=== PATIENT | male | born 1980 | race Caucasian/White ===

== ENCOUNTER 2019-05-02 17:21 | Emergency (ER) | payer OTHER ==
--- NOTE | 2019-05-02 17:49 | ED ---
General Adult HPI - General Chief complaint: Arrhythmia/Palpitations Stated complaint: heart racing Time Seen by Provider: 05/02/19 17:30 Source: patient, family, RN notes reviewed Mode of arrival: ambulatory Limitations: no limitations - History of Present Illness Initial comments: Patient is a pleasant 39-year-old male presenting to the emergency Department with complaints of palpitations. Onset of symptoms was several weeks ago. Symptoms are intermittent. Symptoms last only for a second and then go away for around 20 minutes or so. Patient states today he did have some associated lightheadedness. Patient denies ever having chest discomfort. No dyspnea. Patient has been drinking a lot of coffee and smoking a lot of cigarettes. No energy drinks or diet pills. - Related Data Home Medications Medication Instructions Recorded Confirmed No Known Home Medications 05/07/14 05/02/19 Allergies Allergy/AdvReac Type Severity Reaction Status Date / Time No Known Allergies Allergy Verified 05/02/19 18:29 Review of Systems ROS Statement: Those systems with pertinent positive or pertinent negative responses have been documented in the HPI. ROS Other: All systems not noted in ROS Statement are negative. Constitutional: Denies: fever Eyes: Denies: eye pain ENT: Denies: ear pain Respiratory: Denies: cough, dyspnea Cardiovascular: Reports: palpitations. Denies: chest pain Endocrine: Denies: fatigue Gastrointestinal: Denies: abdominal pain Genitourinary: Denies: dysuria Musculoskeletal: Denies: back pain Skin: Denies: rash Neurological: Denies: weakness Past Medical History Past Medical History: No Reported History Additional Past Medical History / Comment(s): collapsed lung History of Any Multi-Drug Resistant Organisms: None Reported Past Surgical History: No Surgical Hx Reported Past Psychological History: No Psychological Hx Reported Smoking Status: Current every day smoker Past Alcohol Use History: Occasional Past Drug Use History: None Reported General Exam Limitations: no limitations General appearance: alert, in no apparent distress Head exam: Present: normocephalic Eye exam: Present: normal appearance Respiratory exam: Present: normal lung sounds bilaterally Cardiovascular Exam: Present: regular rate, normal rhythm, normal heart sounds. Absent: systolic murmur Expanded Peripheral pulses: 2+: Radial (R), Radial (L), Dorsalis Pedis (R), Dorsalis Pedis (L) GI/Abdominal exam: Present: soft. Absent: tenderness Extremities exam: Present: normal inspection Neurological exam: Present: alert Psychiatric exam: Present: normal affect, normal mood Skin exam: Present: normal color Course Vital Signs 05/02/19 05/02/19 17:24 18:22 Temperature 97.8 F Pulse Rate 60 57 L Respiratory 18 14 Rate Blood Pressure 127/87 116/85 O2 Sat by Pulse 100 98 Oximetry EKG Findings - EKG Comments: EKG Findings:: Sinus bradycardia 57. VA 148. QRS 88. QT 414. QTC 402. Normal axis. Normal QRS. Prominent T waves. Medical Decision Making - Medical Decision Making Patient reevaluated and resting comfortably in bed, symptom-free at this time. Patient and family updated on results and need for follow-up. Patient is agreeable to discontinuing heavy caffeine use and smoking. - Lab Data Result diagrams: 05/02/19 17:50 05/02/19 17:50 Lab Results 05/02/19 05/02/19 05/02/19 Range/Units 17:50 17:50 17:50 WBC 6.5 (3.8-10.6) k/uL RBC 4.74 (4.30-5.90) m/uL Hgb 14.8 (13.0-17.5) gm/dL Hct 44.8 (39.0-53.0) % MCV 94.5 (80.0-100.0) fL MCH 31.3 (25.0-35.0) pg MCHC 33.1 (31.0-37.0) g/dL RDW 13.2 (11.5-15.5) % Plt Count 237 (150-450) k/uL Neutrophils % 57 % Lymphocytes % 28 % Monocytes % 7 % Eosinophils % 3 % Basophils % 3 % Neutrophils # 3.7 (1.3-7.7) k/uL Lymphocytes # 1.8 (1.0-4.8) k/uL Monocytes # 0.4 (0-1.0) k/uL Eosinophils # 0.2 (0-0.7) k/uL Basophils # 0.2 (0-0.2) k/uL PT 9.8 (9.0-12.0) sec INR 0.9 (<1.2) APTT 25.9 (22.0-30.0) sec Sodium 140 (137-145) mmol/L Potassium 4.5 (3.5-5.1) mmol/L Chloride 102 (98-107) mmol/L Carbon Dioxide 29 (22-30) mmol/L Anion Gap 9 mmol/L BUN 12 (9-20) mg/dL Creatinine 0.83 (0.66-1.25) mg/dL Est GFR (CKD-EPI)AfAm >90 (>60 ml/min/1.73 sqM) Est GFR (CKD-EPI)NonAf >90 (>60 ml/min/1.73 sqM) Glucose 102 H (74-99) mg/dL Calcium 9.5 (8.4-10.2) mg/dL Magnesium 1.9 (1.6-2.3) mg/dL Total Bilirubin 0.4 (0.2-1.3) mg/dL AST 25 (17-59) U/L ALT 20 L (21-72) U/L Alkaline Phosphatase 63 (38-126) U/L Creatine Kinase 157 (55-170) U/L Troponin I (0.000-0.034) ng/mL Total Protein 7.8 (6.3-8.2) g/dL Albumin 4.8 (3.5-5.0) g/dL TSH 2.730 (0.465-4.680) mIU/L Free T4 1.29 (0.78-2.19) ng/dL Free T3 pg/mL 5.2 (2.8-5.3) pg/ml 05/02/19 Range/Units 17:50 WBC (3.8-10.6) k/uL RBC (4.30-5.90) m/uL Hgb (13.0-17.5) gm/dL Hct (39.0-53.0) % MCV (80.0-100.0) fL MCH (25.0-35.0) pg MCHC (31.0-37.0) g/dL RDW (11.5-15.5) % Plt Count (150-450) k/uL Neutrophils % % Lymphocytes % % Monocytes % % Eosinophils % % Basophils % % Neutrophils # (1.3-7.7) k/uL Lymphocytes # (1.0-4.8) k/uL Monocytes # (0-1.0) k/uL Eosinophils # (0-0.7) k/uL Basophils # (0-0.2) k/uL PT (9.0-12.0) sec INR (<1.2) APTT (22.0-30.0) sec Sodium (137-145) mmol/L Potassium (3.5-5.1) mmol/L Chloride (98-107) mmol/L Carbon Dioxide (22-30) mmol/L Anion Gap mmol/L BUN (9-20) mg/dL Creatinine (0.66-1.25) mg/dL Est GFR (CKD-EPI)AfAm (>60 ml/min/1.73 sqM) Est GFR (CKD-EPI)NonAf (>60 ml/min/1.73 sqM) Glucose (74-99) mg/dL Calcium (8.4-10.2) mg/dL Magnesium (1.6-2.3) mg/dL Total Bilirubin (0.2-1.3) mg/dL AST (17-59) U/L ALT (21-72) U/L Alkaline Phosphatase (38-126) U/L Creatine Kinase (55-170) U/L Troponin I <0.012 (0.000-0.034) ng/mL Total Protein (6.3-8.2) g/dL Albumin (3.5-5.0) g/dL TSH (0.465-4.680) mIU/L Free T4 (0.78-2.19) ng/dL Free T3 pg/mL (2.8-5.3) pg/ml - Radiology Data Radiology results: image reviewed (Chest x-ray shows no acute process) Disposition Clinical Impression: Palpitations Disposition: HOME SELF-CARE Condition: Stable Instructions (If sedation given, give patient instructions): Heart Palpitations (ED) Additional Instructions: Please follow-up with primary care physician in the next couple days for recheck. Consider Holter monitor and cardiac echo. Discontinue caffeine and smoking. Return for increased heart rate, pain, difficulty breathing, worsening or changing symptoms or other concerns. Is patient prescribed a controlled substance at d/c from ED?: No Referrals: Max Webber MD [STAFF PHYSICIAN] - 1-2 days Time of Disposition: 18:47
[2019-05-02 17:57] LABS: Basophils # (A) 0.2 k/uL (0-0.2); Basophils % (A) 3 %; Eosinophils # (A) 0.2 k/uL (0-0.7); Eosinophils % (A) 3 %; HCT 44.8 % (39.0-53.0); HGB 14.8 gm/dL (13.0-17.5); Lymphocytes # (A) 1.8 k/uL (1.0-4.8); Lymphocytes % (A) 28 %; MCH 31.3 pg (25.0-35.0); MCHC 33.1 g/dL (31.0-37.0); MCV 94.5 fL (80.0-100.0); Mean Platelet Volume 7.2; Monocytes # (A) 0.4 k/uL (0-1.0); Monocytes % (A) 7 %; Neutrophils # (A) 3.7 k/uL (1.3-7.7); Neutrophils % (A) 57 %; Platelet Count 237 k/uL (150-450); RBC 4.74 m/uL (4.30-5.90); RDW 13.2 % (11.5-15.5); WBC 6.5 k/uL (3.8-10.6)
--- NOTE | 2019-05-02 18:03 | XR ---
EXAMINATION TYPE: XR chest 2V DATE OF EXAM: 05/02/2019 COMPARISON: 07/11/2013 HISTORY: Syncope TECHNIQUE: Frontal and lateral views of the chest are obtained. FINDINGS: Heart and mediastinum are normal. Lungs are clear. Diaphragm is normal. Bony thorax appear s normal. IMPRESSION: Normal chest. Normal heart. There is clearing of left side pneumothorax compared to old exam.
[2019-05-02 18:06] LABS: INR 0.9 (<1.2); Partial Thromboplastin Time 25.9 sec (22.0-30.0); Prothrombin Time 9.8 sec (9.0-12.0)
[2019-05-02 18:09] LABS: ALT 20 U/L (21-72); AST 25 U/L (17-59); African American GFR (CKD) >90 (>60 ml/min/1.73 sqM); Albumin 4.8 g/dL (3.5-5.0); Alkaline Phosphatase 63 U/L (38-126); Anion Gap 9 mmol/L; Blood Urea Nitrogen 12 mg/dL (9-20); Calcium 9.5 mg/dL (8.4-10.2); Carbon Dioxide 29 mmol/L (22-30); Chloride 102 mmol/L (98-107); Creatine Kinase 157 U/L (55-170); Glucose 102 mg/dL (74-99); Magnesium 1.9 mg/dL (1.6-2.3); Potassium 4.5 mmol/L (3.5-5.1); Sodium 140 mmol/L (137-145); Total Bilirubin 0.4 mg/dL (0.2-1.3); Total Protein 7.8 g/dL (6.3-8.2)
[2019-05-02 18:28] LABS: T4, Free (Free Thyroxine) 1.29 ng/dL (0.78-2.19)
[2019-05-02 18:53] VITALS: BP 112/76; PULSE 58; RESP 20; TEMP 98
== END 2019-05-02 19:17 | disposition home or self-care (01) ==
LOC: EC 17:21
DX: R00.2 Palpitations (principal); F17.210 Nicotine dependence, cigarettes, uncomplicated
CPT/HCPCS: 36415; 71046; 80053; 82550; 83735; 84439; 84443; 84481; 84484; 85025; 85610; 85730; 93005; 99285

== ENCOUNTER 2021-09-22 08:07 | Inpatient (IN) | payer OTHER ==
[2021-09-22 09:27] LABS: African American GFR (CKD) >90 (>60 ml/min/1.73 sqM); Anion Gap 12 mmol/L; Basophils # (A) 0.1 k/uL (0-0.2); Basophils % (A) 1 %; Blood Urea Nitrogen 10 mg/dL (9-20); Calcium 9.5 mg/dL (8.4-10.2); Carbon Dioxide 25 mmol/L (22-30); Chloride 105 mmol/L (98-107); Eosinophils # (A) 0.1 k/uL (0-0.7); Eosinophils % (A) 1 %; Glucose 91 mg/dL (74-99); HCT 48.5 % (39.0-53.0); HGB 16.9 gm/dL (13.0-17.5); Lymphocytes # (A) 1.9 k/uL (1.0-4.8); Lymphocytes % (A) 17 %; MCH 32.9 pg (25.0-35.0); MCHC 34.9 g/dL (31.0-37.0); MCV 94.1 fL (80.0-100.0); Mean Platelet Volume 7.7; Monocytes # (A) 0.4 k/uL (0-1.0); Monocytes % (A) 3 %; Neutrophils # (A) 8.8 k/uL (1.3-7.7); Neutrophils % (A) 78 %; Non-African American GFR(CKD) >90 (>60 ml/min/1.73 sqM); Platelet Count 288 k/uL (150-450); Potassium 4.8 mmol/L (3.5-5.1); RBC 5.16 m/uL (4.30-5.90); RDW 13.8 % (11.5-15.5); Sodium 142 mmol/L (137-145); WBC 11.4 k/uL (3.8-10.6)
[2021-09-22 10:00] LABS: Amphetamine Screen,Urine Not Detected (NotDetected); Barbiturate Screen,Urine Not Detected (NotDetected); Benzodiazepines Screen,Urine Not Detected (NotDetected); Cocaine Screen,Urine Not Detected (NotDetected); Methadone Screen, Urine Not Detected (NotDetected); Opiate Screen,Urine Not Detected (NotDetected); Oxycodone Screen, Urine Not Detected (NotDetected); Phencyclidine Screen,Urine Not Detected (NotDetected); Tricyclic Antidepressant,Urine Not Detected (NotDetected); Urn Cannabinoid Scrn Not Detected (NotDetected)
--- NOTE | 2021-09-22 10:04 | CT ---
EXAMINATION TYPE: CT angio head neck DATE OF EXAM: 09/22/2021 COMPARISON: None HISTORY: 41-year-old male pain, suicide attempt, laceration to left anterior neck and right post TECHNIQUE: Contiguous axial scanning of the head and neck performed with IV Contrast, patient injecte d with 65 mL of Isovue 370. Coronal/sagittal MIP reconstructions performed. 3-D reconstructions gener ated on a dedicated indeterminate workstation. CT DLP: 478.4 mGycm Automated exposure control for dose reduction was used. FINDINGS: NECK: Conventional branching anatomy. The bilateral common and internal carotid arteries are widely patent and appear intact. Left vertebra l artery is dominant. Both vertebral arteries are patent and intact throughout their course. There is soft tissue injury along the left supraclavicular region with associated soft tissue swellin g and soft tissue air extending up into the left mid neck behind the carotid space, within the subcut aneous fat layer, and within the posterior half of the left sternocleidomastoid muscle. Additional so ft tissue injury to the right posterior upper neck. Foci of air within the right posterior paraspinal musculature and subcutaneous tissues. No extravasated contrast or abnormal fluid collection is identified. Some limitation due to dense con trast bolus coming in from the left upper extremity. Bilateral palatine tonsillar hypertrophy with a 3 mm tonsillolith on the right. BRAIN: Dominant left vertebral artery. Vertebral and basilar arteries as well as the remainder of the preschool associate teacher ior circulation are patent. The internal carotid arteries and remainder of the anterior circulation is patent. Dural venous sinuses are patent. No aneurysmal changes seen Mastoid air cells well pneumatized. Undulating nasal septum. Mild degenerative disc disease and endpl ate spondylosis mid to lower cervical spine. IMPRESSION (head and neck): 1. SOFT TISSUE INJURY LEFT LOWER NECK/SUPRACLAVICULAR REGION AND RIGHT POSTERIOR UPPER NECK. THIS IS CHARACTERIZED BY SOFT TISSUE SWELLING AND SOFT TISSUE AIR IN KEEPING WITH LACERATIONS. 2. NO ARTERIAL/VASCULAR INJURY IDENTIFIED. PATENT AND INTACT CAROTID AND VERTEBRAL ARTERIES OF THE NE CK. 3. NORMAL APPEARANCE TO THE [place].
[2021-09-22] MEDS ORDERED: DIPH,PERTUS(ACELL)TETVAC-LF 0.5 ML VIAL IM ONE (10:23)
--- NOTE | 2021-09-22 11:19 | ED ---
General Adult HPI - General Chief complaint: Psychiatric Symptoms Stated complaint: suicidal Time Seen by Provider: 09/22/21 08:20 Source: patient, family, RN notes reviewed, old records reviewed Mode of arrival: ambulatory Limitations: no limitations - History of Present Illness Initial comments: Patient is a 41-year-old male with past medical history remarkable for psychiatric illness with prior suicide attempts presents emergency Department following a suicide attempt at home. He has been having suicidal ideations. Last night he did take a steak knife and made cuts that his neck both on the left side anteriorly as well as posterior right side. He has some mild superficial puncture paul. No significant bleeding. No significant pain at th e site. Presents over concern for the suicide attempt as well as the injury to his neck. Denies any headaches, shortness of breath, chest pain, abdominal pain, nausea, vomiting. Is uncertain when his last shot was. Denies any fevers, chills. Presents with family. Denies any homicidal ideations, attempts complaints. Denies any visual or auditory hallucinations. - Related Data Home Medications Medication Instructions Recorded Confirmed No Known Home Medications 05/07/14 09/22/21 Allergies Allergy/AdvReac Type Severity Reaction Status Date / Time No Known Allergies Allergy Verified 09/22/21 08:40 Review of Systems ROS Statement: Those systems with pertinent positive or pertinent negative responses have been documented in the HPI. Review of Systems: CONST: Denies fever EYES: Denies blurry vision ENT: Denies nasal congestion C/V: Denies Chest pain RESP: Denies shortness of breath GI: Denies abdominal pain : Denies dysuria SKIN: Endorses superficial lacerations to the neck. MSK: Denies joint pain. NEURO: Denies headache PSYCH: Denies homicidal ideations/plans/attempts. Denies visual or auditory hallucinations. He endorses suicidal ideations, plan, as well as attempt last night with a knife. ROS Other: All systems not noted in ROS Statement are negative. Past Medical History Past Medical History: No Reported History Additional Past Medical History / Comment(s): collapsed lung History of Any Multi-Drug Resistant Organisms: None Reported Past Surgical History: No Surgical Hx Reported Past Psychological History: No Psychological Hx Reported Smoking Status: Current every day smoker Past Alcohol Use History: Abuse, Daily Past Drug Use History: None Reported General Exam - General Exam Comments Initial Comments: General: Appears in no acute distress. HEAD: Normal with no signs of head trauma. EYES: PERRLA, EOMI, conjunctiva normal, no discharge. ENT: Hearing grossly intact, normal oropharynx. No stridor auscultated. No carotid bruits bilaterally. Superficial lacerations without any surrounding erythema, fluctuance, mass on the anterior left neck, as well as posterior right neck. RESPIRATORY: Clear breath sounds bilaterally. No wheezes, rales, or rhonchi. C/V: Regular rate and rhythm. S1 and S2 auscultated, no edema, peripheral pulses 2+ and intact throughout ABD: Abd is soft, nontender, nondistended EXT: Normal range of motion, no obvious deformity SKIN: Superficial lacerations to neck, multiple. NEURO: Alert and oriented 4. No focal deficits. Limitations: no limitations Course Vital Signs 09/22/21 08:14 Temperature 98.6 F Pulse Rate 92 Respiratory 18 Rate Blood Pressure 118/82 O2 Sat by Pulse 95 Oximetry Medical Decision Making - Medical Decision Making Some patient's presentation and physical exam, I do believe she requires psychiatric evaluation. He was placed in green scrubs. Suicide precautions as well as a sitter were ordered. Due to the neck injury, we'll obtain a CT angiogram the neck as well as basic labs. BAT was 0.022. UDS will be ordered as well. Patient was in agreement with this plan. Patient will be administered Tdap as well as started on basic antibiotics, Keflex twice a day for empiric treatment. He declines analgesia at this time. Laboratory studies were unremarkable except for mild leukocytosis of 11.4 which is likely reactive. UDS is negative. CT angiogram reveals no injuries to the vasculature. There is superficial injury secondary to his lacerations. On reevaluation, I discussed the findings with the patient. I believe he is medically cleared for evaluation by psychiatry at this time. He was in agreement with the plan. Disposition is pending psychiatric evaluation. Psychiatry evaluated the patient and determined that he does meet inpatient criteria. Patient was therefore admitted in stable condition to inpatient psychiatry. - Lab Data Result diagrams: 09/22/21 08:58 09/22/21 08:58 Lab Results 09/22/21 09/22/21 09/22/21 Range/Units 08:58 08:58 09:18 WBC 11.4 H (3.8-10.6) k/uL RBC 5.16 (4.30-5.90) m/uL Hgb 16.9 (13.0-17.5) gm/dL Hct 48.5 (39.0-53.0) % MCV 94.1 (80.0-100.0) fL MCH 32.9 (25.0-35.0) pg MCHC 34.9 (31.0-37.0) g/dL RDW 13.8 (11.5-15.5) % Plt Count 288 (150-450) k/uL MPV 7.7 Neutrophils % 78 % Lymphocytes % 17 % Monocytes % 3 % Eosinophils % 1 % Basophils % 1 % Neutrophils # 8.8 H (1.3-7.7) k/uL Lymphocytes # 1.9 (1.0-4.8) k/uL Monocytes # 0.4 (0-1.0) k/uL Eosinophils # 0.1 (0-0.7) k/uL Basophils # 0.1 (0-0.2) k/uL Sodium 142 (137-145) mmol/L Potassium 4.8 (3.5-5.1) mmol/L Chloride 105 (98-107) mmol/L Carbon Dioxide 25 (22-30) mmol/L Anion Gap 12 mmol/L BUN 10 (9-20) mg/dL Creatinine 0.74 (0.66-1.25) mg/dL Est GFR (CKD-EPI)AfAm >90 (>60 ml/min/1.73 sqM) Est GFR (CKD-EPI)NonAf >90 (>60 ml/min/1.73 sqM) Glucose 91 (74-99) mg/dL Calcium 9.5 (8.4-10.2) mg/dL Urine Opiates Screen Not Detected (NotDetected) Ur Oxycodone Screen Not Detected (NotDetected) Urine Methadone Screen Not Detected (NotDetected) Ur Propoxyphene Screen Not Detected (NotDetected) Ur Barbiturates Screen Not Detected (NotDetected) U Tricyclic Antidepress Not Detected (NotDetected) Ur Phencyclidine Scrn Not Detected (NotDetected) Ur Amphetamines Screen Not Detected (NotDetected) U Methamphetamines Scrn Not Detected (NotDetected) U Benzodiazepines Scrn Not Detected (NotDetected) Urine Cocaine Screen Not Detected (NotDetected) U Marijuana (THC) Screen Not Detected (NotDetected) Coronavirus (PCR) (Not Detectd) 09/22/21 Range/Units 13:25 WBC (3.8-10.6) k/uL RBC (4.30-5.90) m/uL Hgb (13.0-17.5) gm/dL Hct (39.0-53.0) % MCV (80.0-100.0) fL MCH (25.0-35.0) pg MCHC (31.0-37.0) g/dL RDW (11.5-15.5) % Plt Count (150-450) k/uL MPV Neutrophils % % Lymphocytes % % Monocytes % % Eosinophils % % Basophils % % Neutrophils # (1.3-7.7) k/uL Lymphocytes # (1.0-4.8) k/uL Monocytes # (0-1.0) k/uL Eosinophils # (0-0.7) k/uL Basophils # (0-0.2) k/uL Sodium (137-145) mmol/L Potassium (3.5-5.1) mmol/L Chloride (98-107) mmol/L Carbon Dioxide (22-30) mmol/L Anion Gap mmol/L BUN (9-20) mg/dL Creatinine (0.66-1.25) mg/dL Est GFR (CKD-EPI)AfAm (>60 ml/min/1.73 sqM) Est GFR (CKD-EPI)NonAf (>60 ml/min/1.73 sqM) Glucose (74-99) mg/dL Calcium (8.4-10.2) mg/dL Urine Opiates Screen (NotDetected) Ur Oxycodone Screen (NotDetected) Urine Methadone Screen (NotDetected) Ur Propoxyphene Screen (NotDetected) Ur Barbiturates Screen (NotDetected) U Tricyclic Antidepress (NotDetected) Ur Phencyclidine Scrn (NotDetected) Ur Amphetamines Screen (NotDetected) U Methamphetamines Scrn (NotDetected) U Benzodiazepines Scrn (NotDetected) Urine Cocaine Screen (NotDetected) U Marijuana (THC) Screen (NotDetected) Coronavirus (PCR) Not Detected (Not Detectd) Disposition Clinical Impression: Attempted suicide, Suicidal ideation, Laceration, Encounter for psychiatric assessment Disposition: ADMITTED IP TO THIS [facility] Condition: Stable Referrals: None,Stated [Primary Care Provider] - 1-2 days
[2021-09-22] MEDS: CEPHALEXIN 500 MG CAP PO SCH ×2 (12:03→21:49)
[2021-09-22] MEDS ORDERED: HALOPERIDOL LACTATE 5 MG/ML 1 ML VIAL IM PRN (17:41)
[2021-09-22] MEDS ORDERED: ACETAMINOPHEN TAB 325 MG TAB PO PRN (17:41)
[2021-09-22] MEDS ORDERED: LORazepam 1 MG TAB PO PRN (17:41)
[2021-09-22] MEDS ORDERED: MAGNESIUM HYDROXIDE 2,400 MG/10 ML CUP PO PRN (17:41)
[2021-09-22] MEDS ORDERED: MAG HYDROX/AL HYDROX/SIMETH 30 ML CUP PO PRN (17:41)
[2021-09-22] MEDS ORDERED: traZODone HCL 50 MG TAB PO PRN (17:55)
[2021-09-22] MEDS ORDERED: haloperidoL 5 MG TAB PO PRN (17:56)
[2021-09-22] MEDS ORDERED: LORazepam 2 MG/ML INJ IM PRN (17:57)
--- NOTE | 2021-09-23 02:15 | P.MDCNMH ---
History of Present Illness H&P Date: 09/22/21 Chief Complaint: MEDICAL EVALUATION 41 year old male with no significant past medical history patient comes in with depression and suicidal ideation . he denies any medical concerns at this time Review of Systems Pertinent positives as noted in HPI. All other systems were reviewed and are negative Past Medical History Past Medical History: No Reported History Additional Past Medical History / Comment(s): collapsed lung History of Any Multi-Drug Resistant Organisms: None Reported Past Surgical History: No Surgical Hx Reported Past Psychological History: No Psychological Hx Reported Smoking Status: Current every day smoker Past Alcohol Use History: Abuse, Daily Past Drug Use History: None Reported Medications and Allergies Home Medications Medication Instructions Recorded Confirmed Type No Known Home Medications 05/07/14 09/22/21 History Allergies Allergy/AdvReac Type Severity Reaction Status Date / Time No Known Allergies Allergy Verified 09/22/21 08:40 Physical Exam Vitals: Vital Signs Temp Pulse Pulse Resp BP BP Pulse Ox 09/22/21 18:10 97.5 F L 68 18 126/64 96 09/22/21 08:14 98.6 F 92 18 118/82 95 Intake and Output 09/22/21 09/22/21 09/23/21 14:59 22:59 06:59 Other: Weight 81.647 kg 97.5 kg Constitutional: No acute distress, conversant, pleasant Eyes: Anicteric sclerae, moist conjunctiva, Pupils equal round reactive to light ENMT: NC/AT Oropharynx clear, no erythema, or exudates Neck: Supple, FROM, no masses, or JVD No carotid bruits No thyromegaly Lungs: Clear to auscultation Clear to percussion Normal respiratory effort, no accessory muscle use Cardiovascular: Heart regular in rate and rhythm, No murmurs, gallops, or rubs No peripheral edema Abdominal: Soft Nontender, no guarding, rebound or rigidity Abdomen moving with respiration Normoactive bowel sounds No hepatomegaly, No splenomegaly No palpable mass No abdominal wall hernia noted Skin: Normal temperature, tone, texture, turgor No induration No subcutaneous nodules No rash, lesions No ulcers Extremities: No digital cyanosis No clubbing Pedal pulses intact and symmetrical Radial pulses intact and symmetrical No calf tenderness Psychiatric: Alert and oriented to person, place and time depressed affect fair judgement Neuro Muscles Strength 5/5 in all 4 extremities Sensation to light touch grossly present throughout Cranial nerves II-XII grossly intact No focal sensory deficits Lymphatics: no palpable cervical or supraclavicular , or inguinal lymph nodes Cranial Nerve Examination - Cranial Nerves Cranial Nerve II- Optic: Intact Cranial Nerve III- Oculomotor: Intact Cranial Nerve IV- Trochlear: Intact Cranial Nerve V- Trigeminal: Intact Cranial Nerve - Abducens: Intact Cranial Nerve VII- Facial: Intact Cranial Nerve VIII- Auditory: Intact Cranial Nerve IX- Glossopharyngeal: Intact Cranial Nerve X- Vagus: Intact Cranial Nerve XI- Accessory: Intact Cranial Nerve XII- Hypoglossal: Intact Results CBC & Chem 7: 09/22/21 08:58 09/22/21 08:58 Labs: Abnormal Lab Results - Last 24 Hours (Table) 09/22/21 Range/Units 08:58 WBC 11.4 H (3.8-10.6) k/uL Neutrophils # 8.8 H (1.3-7.7) k/uL Assessment and Plan Assessment: depression and suicidal ideation management per psych medically stable follow up labs thanks for this consult
[2021-09-23] MEDS: CEPHALEXIN 500 MG CAP PO SCH ×2 (09:38→20:53)
[2021-09-23] MEDS: NICOTINE 14MG/24HR PATCH TRANSDERM SCH (09:39)
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
[2021-09-24] MEDS: CEPHALEXIN 500 MG CAP PO SCH ×2 (08:21→20:58)
[2021-09-24] MEDS: NICOTINE 14MG/24HR PATCH TRANSDERM SCH (08:24)
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
[2021-09-25 06:58] VITALS: RESP 16
[2021-09-25] MEDS: CEPHALEXIN 500 MG CAP PO SCH ×2 (08:20→20:59)
--- NOTE | 2021-09-25 08:22 | P.PN ---
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 This may have also prevented me from going into the where the decline to take me Objective data: Patient is casually dressed and groomed Affect at this time appears to be fair Thought processes are goal-directed sequential and logical Patient denies any suicidal or homicidal ideations Patient has started to show some positive thinking and forward thinking Formal and operational judgment seems to be improved Plan: Patient continues to show improvement Affect at this time appears to be fair no suicidal or homicidal ideation verbalized Patient is a good candidate for referral to substance abuse program as well as outpatient counseling and supportive care Bruce Grande M.D. 09/25/2021 Objective - Vital Signs Vital signs: Vital Signs Temp 97.6 F 09/25/21 06:17 Pulse 54 L 09/25/21 06:17 Resp 16 09/25/21 06:17 BP 114/52 09/25/21 06:17 Pulse Ox 99 09/25/21 06:17 - Labs CBC & Chem 7: 09/22/21 08:58 09/22/21 08:58
[2021-09-25] MEDS: NICOTINE 14MG/24HR PATCH TRANSDERM SCH (08:54)
[2021-09-26 06:47] VITALS: BP 125/59; PULSE 58; TEMP 98.1
[2021-09-26] MEDS: NICOTINE 14MG/24HR PATCH TRANSDERM SCH (08:12)
[2021-09-26] MEDS: CEPHALEXIN 500 MG CAP PO SCH (08:29)
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
== END 2021-09-26 14:03 | disposition home or self-care (01) | DRG 882 ==
LOC: EC 08:07 → 3MHU 17:37
PROVIDERS: ADMIT Psychiatry & Neurology Psychiatry; ATTEND Psychiatry & Neurology Psychiatry
DX: F43.23 Adjustment disorder with mixed anxiety and depressed mood (principal); F43.10 Post-traumatic stress disorder, unspecified; F60.3 Borderline personality disorder; F17.200 Nicotine dependence, unspecified, uncomplicated; F10.129 Alcohol abuse with intoxication, unspecified; F43.25 Adjustment disorder with mixed disturbance of emotions and conduct; X78.1XXA Intentional self-harm by knife, initial encounter; Z23 Encounter for immunization; Z59.9 Problem related to housing and economic circumstances, unspecified; Z91.51 Personal history of suicidal behavior; Z20.822 Contact with and (suspected) exposure to COVID-19
CPT/HCPCS: 36415; 70496; 70498; 80048; 80306; 82075; 84443; 85025; 87635; 90471; 90715; 99285